=== PATIENT | female | born 1955 | race Caucasian/White ===

== ENCOUNTER → 2016-08-22 | Outpatient (CLI) | payer BC ==
--- NOTE | 2016-08-22 10:17 | Diagnostic Imaging Report ---
COMPARISON: None RELEVANT CLINICAL HISTORY: Stage III renal disease. TECHNIQUE: Real time ultrasound is performed. Color and spectral Doppler analysis is also performed. FINDINGS: The right kidney measures 10.9 cm x 4.1 cm x 5.6 cm. There is a diffuse cortical thinning. The renal cortex measures about 11 mm in thickness. No focal mass or obstructive change is seen. The left kidney measures 10.7 cm x 5.3 cm x 5.3 cm. There is diffuse cortical thinning. The cortex measures about 7 mm in thickness. There is a 2.9 cm parapelvic cyst. There is very mild dilatation of left renal pelvis. No stones are suspected. Prevoid bladder volume is about 155 cc. Postvoid bladder volume is minimal. Bilateral ureteral jets are seen. IMPRESSION: 1. Diffuse bilateral renal cortical thinning slightly more prominent on the left. 2. There is a 2.9 cm left parapelvic cyst and there is minimal dilatation of left renal pelvis. 3. No additional abnormality is seen. Dictated by: Dictated on workstation # [id number]
== END ==
LOC: RAD 08:18
PROVIDERS: ATTEND Internal Medicine Nephrology
DX: N18.3 Chronic kidney disease, stage 3 (moderate) (principal); N28.1 Cyst of kidney, acquired
CPT/HCPCS: 76770